=== PATIENT | male | born 1975 | race African-American/Black ===

== ENCOUNTER 2017-06-20 15:42 | Observation (INO) | payer SELFPAY ==
[~2017-06-20] VITALS: Ht 167.6 cm; Wt 73.6 kg
[~2017-06-20 15:42] MED LIST: CORTIS10A LEFT EAR; CYCL-36 PO; KETOROLAC TROMETHAMINE 30 MG/ML (IVP) VIAL IV PUSH ONE; NAPR500 PO; PHENYLEPH/NS 1000 MCG/10 ML SYR IV ONE; PROPOFOL 200 MG/20 ML AMP IV ONE; ROCURONIUM INJ 50 MG/5 ML SYRINGE IV PUSH ONE
[2017-06-20] MEDS ORDERED: IOHEXOL 350 MG/ML 10 ML VIAL (for RAD DIAG) IVCONTRAST ONE (15:43)
[2017-06-20 15:47] VITALS: BP 114/72; PULSE 81; RESP 16; TEMP 98.6; O2SAT 100; O2SAT 75
[2017-06-20] MEDS ORDERED: SODIUM CHLOR 0.9% 1000 ML INJ 1,000 ML IV ONE (17:00)
[2017-06-20] MEDS ORDERED: ONDANSETRON HCL 4 MG/2 ML VIAL IV PUSH ONE (17:00)
[2017-06-20] MEDS ORDERED: SODIUM CHLORIDE 0.9% FLUSH 10 ML FLUSH IV FLUSH PRN (17:00)
--- NOTE | 2017-06-20 17:03 | PD ---
HPI Chief Complaint: GI Complaint Time Seen by Provider: 16:53 Travel History International Travel<30 days: No Contact w/Intl Traveler<30days: No Traveled to known affect area: No History of Present Illness HPI 42-year-old male presents to the emergency department for evaluation nausea, vomiting, diarrhea, abdominal pain that started today. He states this all started around 2 PM. He states he has vomited 3 times, but the last time he just heaved. Patient also reports 2 episodes of diarrhea. No blood in the stool. He reports diffuse abdominal pain, worse in the right side of the abdomen. He denies any history of abdominal problems. No previous abdominal surgeries. He denies any fevers or chills. No chest pain or shortness of breath. Patient reports no chronic medical problems and takes no prescribed medications. He denies any alleviating or exacerbating factors. [facility] Past Medical History Medical History: Denies Significant Hx Diminished Hearing: No Immunizations Current: Yes Past Surgical History Surgical History: No Previous Surgery Social History Alcohol Use: Yes (OCC) Tobacco Use: Yes (1 PPD) Substance Use: No Allergies-Medications (Allergen,Severity, Reaction): Coded Allergies: No Known Allergies (Verified , 06/20/17) Reported Meds & Prescriptions Reported Meds & Active Scripts Active Review of Systems Except as stated in HPI: all other systems reviewed are Neg Physical Exam Narrative GENERAL: Well-nourished, well-developed male patient, ambulatory. Afebrile. SKIN: Focused skin assessment warm/dry. HEAD: Normocephalic. Atraumatic. EYES: No scleral icterus. No injection or drainage. NECK: Supple, trachea midline. No JVD or lymphadenopathy. CARDIOVASCULAR: Regular rate and rhythm without murmurs, gallops, or rubs. RESPIRATORY: Breath sounds equal bilaterally. No accessory muscle use. Lungs sounds are clear to auscultation. GASTROINTESTINAL: Abdomen soft and nondistended. Patient has mild-moderate diffuse tenderness to palpation. MUSCULOSKELETAL: No cyanosis, or edema. BACK: Nontender without obvious deformity. No CVA tenderness. Data Data Last Documented VS Vital Signs Date Time Temp Pulse Resp B/P (MAP) Pulse Ox O2 Delivery O2 Flow Rate FiO2 06/20/17 19:04 90 16 127/62 (83) 96 Room Air 06/20/17 15:47 98.6 Orders Orders Complete Blood Count With Diff (06/20/17 16:58) Comprehensive Metabolic Panel (06/20/17 16:58) Lipase (06/20/17 16:58) Prothrombin Time / Inr (Pt) (06/20/17 16:58) Act Partial Throm Time (Ptt) (06/20/17 16:58) Urinalysis - C+S If Indicated (06/20/17 16:58) Ct Abd/Pel W Iv Contrast(Rout) (06/20/17 16:58) Iv Access Insert/Monitor (06/20/17 16:58) Ecg Monitoring (06/20/17 16:58) Oximetry (06/20/17 16:58) Sodium Chloride 0.9% Flush (Ns Flush) (06/20/17 17:00) Sodium Chlor 0.9% 1000 Ml Inj (Ns 1000 M (06/20/17 17:00) Ondansetron Inj (Zofran Inj) (06/20/17 17:00) Iohexol 350 Inj (Omnipaque 350 Inj) (06/20/17 15:43) Admit Order (Ed Use Only) (06/20/17 ) Piperacil-Tazo 4.5 Gm Premix (Zosyn 4.5 (06/20/17 21:15) Labs Laboratory Tests Test 06/20/17 17:00 White Blood Count 11.5 TH/MM3 Red Blood Count 5.35 MIL/MM3 Hemoglobin 14.4 GM/DL Hematocrit 43.2 % Mean Corpuscular Volume 80.7 FL Mean Corpuscular Hemoglobin 26.8 PG Mean Corpuscular Hemoglobin Concent 33.2 % Red Cell Distribution Width 13.5 % Platelet Count 261 TH/MM3 Mean Platelet Volume 7.5 FL Neutrophils (%) (Auto) 89.3 % Lymphocytes (%) (Auto) 5.2 % Monocytes (%) (Auto) 4.7 % Eosinophils (%) (Auto) 0.6 % Basophils (%) (Auto) 0.2 % Neutrophils # (Auto) 10.2 TH/MM3 Lymphocytes # (Auto) 0.6 TH/MM3 Monocytes # (Auto) 0.5 TH/MM3 Eosinophils # (Auto) 0.1 TH/MM3 Basophils # (Auto) 0.0 TH/MM3 CBC Comment DIFF FINAL Differential Comment Prothrombin Time 12.0 SEC Prothromb Time International Ratio 1.1 RATIO Activated Partial Thromboplast Time 25.9 SEC Urine Color YELLOW Urine Turbidity CLEAR Urine pH 5.5 Urine Specific [place] 1.025 Urine Protein TRACE mg/dL Urine Glucose (UA) NEG mg/dL Urine Ketones TRACE mg/dL Urine Occult Blood NEG Urine Nitrite NEG Urine Bilirubin NEG Urine Urobilinogen LESS THAN 2.0 MG/DL Urine Leukocyte Esterase NEG Urine WBC 2 /hpf Urine Mucus FEW /lpf Microscopic Urinalysis Comment CULT NOT INDICATED Blood Urea Nitrogen 14 MG/DL Creatinine 1.26 MG/DL Random Glucose 85 MG/DL Total Protein 8.5 GM/DL Albumin 4.1 GM/DL Calcium Level 9.0 MG/DL Alkaline Phosphatase 111 U/L Aspartate Amino Transf (AST/SGOT) 15 U/L Alanine Aminotransferase (ALT/SGPT) 18 U/L Total Bilirubin 0.6 MG/DL Sodium Level 134 MEQ/L Potassium Level 3.9 MEQ/L Chloride Level 100 MEQ/L Carbon Dioxide Level 26.9 MEQ/L Anion Gap 7 MEQ/L Estimat Glomerular Filtration Rate 76 ML/MIN Lipase 141 U/L [facility] Medical Decision Making Medical Screen Exam Complete: Yes Emergency Medical Condition: Yes Medical Record Reviewed: Yes Interpretation(s) Last Impressions Abdomen/Pelvis CT 06/20/17 1658 Signed Impressions: Service Date/Time: , June 20, 2017 19:22 - CONCLUSION: Appendix visualized dilated at 1 cm without periappendiceal inflammatory change, free air, free fluid or abscess formation. This may represent early appendicitis Johnny Narvaez MD Differential Diagnosis Gastroenteritis versus diverticulitis versus cholecystitis versus pancreatitis versus appendicitis Narrative Course 42-year-old male presents to the emergency department for evaluation of abdominal pain, nausea, vomiting, diarrhea that started 2 PM today. Patient declines pain medication at this time. CBC, CMP, lipase, PTT, PT/INR ordered and pending. CT abdomen/pelvis with IV contrast is ordered and pending. Patient is given normal saline 1 L IV bolus, Zofran 4 mg IV. CBC shows leukocytosis 11.5. CMP shows no acute abnormality. Lipase is 141. Coags shows no acute abnormality. CT of the abdomen/pelvis shows appendix visualized dilated at 1 cm without periappendiceal inflammatory change, free air , free fluid or abscess formation. This may represent early appendicitis My attending physician, Dr. Chang, examined patient as well. He contacted Gen. surgeon and admitted patient. Danette Resendiz Jun 20, 2017 17:02
[2017-06-20 17:45] LABS: AUTOMATED NEUTROPHIL # 10.2 TH/MM3 (1.8-7.7); BASOPHIL % 0.2 % (0.0-2.0); EOSINOPHIL # 0.1 TH/MM3 (0-0.4); EOSINOPHIL % 0.6 % (0.0-4.0); HEMATOCRIT 43.2 % (39.0-51.0); HEMO FLAGS DIFF FINAL; LYMPH % 5.2 % (9.0-44.0); LYMPHOCYTE # 0.6 TH/MM3 (1.0-4.8); MEAN CELL VOLUME 80.7 FL (80.0-100.0); MEAN CORPUSCULAR HEMOGLOBIN 26.8 PG (27.0-34.0); MEAN CORPUSCULAR HGB CONC 33.2 % (32.0-36.0); MONO % 4.7 % (0.0-8.0); NEUT % 89.3 % (16.0-70.0); PLATELET COUNT 261 TH/MM3 (150-450); RED BLOOD COUNT 5.35 MIL/MM3 (4.50-5.90); RED CELL DISTRIBUTION WIDTH 13.5 % (11.6-17.2); WHITE BLOOD COUNT 11.5 TH/MM3 (4.0-11.0)
[2017-06-20 17:52] LABS: BLOOD, URINE NEG (NEG); COMMENT (UR) CULT NOT INDICATED; CULTURE IF INDICATED CULT NOT INDICATED; GLUCOSE,URINE NEG (NEG); KETONE, URINE TRACE mg/dL (NEG); MUCUS URINE FEW /lpf (OCC); NITRITE,URINE NEG (NEG); PH, URINE 5.5 (5.0-8.5); URINE COLOR YELLOW (YELLW/STRAW)
[2017-06-20 18:02] LABS: APTT (PATIENT) 25.9 SEC (24.3-30.1); INTERNATIONAL NORMALIZED RATIO 1.1 RATIO
[2017-06-20 18:08] LABS: ALT (GPT) 18 U/L (12-78); ANION GAP 7 MEQ/L (5-15); AST (GOT) 15 U/L (15-37); BICARBONATE 26.9 MEQ/L (21.0-32.0); BLOOD UREA NITROGEN 14 MG/DL (7-18); CHLORIDE 100 MEQ/L (98-107); GLOMERULAR FILTRATION RATE 76 ML/MIN (>89); POTASSIUM 3.9 MEQ/L (3.5-5.1); SODIUM (NA) 134 MEQ/L (136-145)
[2017-06-20 18:09] LABS: ALKALINE PHOSPHATASE 111 U/L (45-117); TOTAL BILIRUBIN ADULT 0.6 MG/DL (0.2-1.0)
[2017-06-20 19:04] VITALS: BP 127/62; PULSE 90; RESP 16; O2SAT 96
--- NOTE | 2017-06-20 20:06 | RADRPT ---
EXAM DATE/TIME: 06/20/2017 19:22 [place] COMPARISON: No previous studies available for comparison. INDICATIONS : Diffuse abdomen pain with vomiting. IV CONTRAST: 90 cc Omnipaque 350 (iohexol) IV ORAL CONTRAST: No oral contrast ingested. RADIATION DOSE: 6.64 CTDIvol (mGy) MEDICAL HISTORY : None SURGICAL HISTORY : None. ENCOUNTER: Initial ACUITY: 1 day PAIN SCALE: 4/10 LOCATION: Bilateral lower quadrant TECHNIQUE: Volumetric scanning of the abdomen and pelvis was performed. Using automated exposure control and ad justment of the mA and/or kV according to patient size, radiation dose was kept as low as reasonably achievable to obtain optimal diagnostic quality images. DICOM format image data is available electro nically for review and comparison. FINDINGS: LOWER LUNGS: The visualized lower lungs are clear. LIVER: Homogeneous density without lesion. There is no dilation of the biliary tree. No calcified gallston es. Gallbladder is contracted adjacent to the right lobe of the liver with no evidence of wall thicke konrad SPLEEN: Normal size without lesion. PANCREAS: Within normal limits. KIDNEYS: Normal in size and shape. There is no mass, stone or hydronephrosis. ADRENAL GLANDS: Within normal limits. VASCULAR: There is no aortic aneurysm. BOWEL/MESENTERY: Appendix is visualized and is dilated at 1 cm without inflammatory change or free fluid adjacent to t his or abscess formation no free air. There may be a mild ileus pattern of the bowel distribution. ABDOMINAL WALL: Within normal limits. RETROPERITONEUM: There is no lymphadenopathy. BLADDER: No wall thickening or mass. REPRODUCTIVE: Within normal limits. INGUINAL: There is no lymphadenopathy or hernia. MUSCULOSKELETAL: Within normal limits for patient age. CONCLUSION: Appendix visualized dilated at 1 cm without periappendiceal inflammatory change, free air, free fluid or abscess formation. This may represent early appendicitis Johnny Narvaez MD on June 20, 2017 at 20:00 Board Certified Radiologist. This report was verified electronically.
--- NOTE | 2017-06-20 21:00 | PD ---
Data Data Last Documented VS Vital Signs Date Time Temp Pulse Resp B/P (MAP) Pulse Ox O2 Delivery O2 Flow Rate FiO2 06/20/17 22:20 06/20/17 21:32 88 18 99 Room Air 06/20/17 15:47 98.6 Orders Orders Complete Blood Count With Diff (06/20/17 16:58) Comprehensive Metabolic Panel (06/20/17 16:58) Lipase (06/20/17 16:58) Prothrombin Time / Inr (Pt) (06/20/17 16:58) Act Partial Throm Time (Ptt) (06/20/17 16:58) Urinalysis - C+S If Indicated (06/20/17 16:58) Ct Abd/Pel W Iv Contrast(Rout) (06/20/17 16:58) Iv Access Insert/Monitor (06/20/17 16:58) Ecg Monitoring (06/20/17 16:58) Oximetry (06/20/17 16:58) Sodium Chloride 0.9% Flush (Ns Flush) (06/20/17 17:00) Sodium Chlor 0.9% 1000 Ml Inj (Ns 1000 M (06/20/17 17:00) Ondansetron Inj (Zofran Inj) (06/20/17 17:00) Iohexol 350 Inj (Omnipaque 350 Inj) (06/20/17 15:43) Admit Order (Ed Use Only) (06/20/17 ) Piperacil-Tazo 4.5 Gm Premix (Zosyn 4.5 (06/20/17 21:15) Bupivacaine Pf 0.25% Inj (Marcaine Pf 0. (06/20/17 22:10) Acetaminophen 1000 Mg/100 Ml (Ofirmev 10 (06/20/17 22:18) Sugammadex Inj (Bridion Inj) (06/20/17 22:19) Midazolam Inj (Versed Inj) (06/20/17 22:43) Metoclopramide Inj (Reglan Inj) (06/20/17 22:43) Dexamethasone Inj (Decadron Inj) (06/20/17 22:43) Ondansetron Inj (Zofran Inj) (06/20/17 22:43) Famotidine Inj (Pepcid Inj) (06/20/17 22:46) Place In Observation (06/20/17 23:40) Code Status (06/20/17 23:40) Vital Signs (Adult) ENID.Q4H (06/20/17 23:40) Activity Oob Ad Tiana (06/20/17 23:40) Discontinue Iv (06/20/17 23:40) Ice / Cold Pack PRN (06/20/17 23:40) Diet Regular Basic (06/21/17 Breakfast) Lactated Ringer's 1000 Ml Inj (Lr 1000 M (06/20/17 23:40) Sodium Chloride 0.9% Flush (Ns Flush) (06/20/17 23:45) Sodium Chloride 0.9% Flush (Ns Flush) (06/21/17 09:00) Ketorolac Inj (Toradol Inj) (06/20/17 23:45) Acetamin-Hydrocod 325-5 Mg ([place] 5-325 (06/20/17 23:45) Resp Incentive Spirometry (06/20/17 23:40) Acetamin-Hydrocod 325-5 Mg ([place] 5-325 (06/20/17 23:45) Morphine Inj (Morphine Inj) (06/20/17 23:45) Ondansetron Inj (Zofran Inj) (06/20/17 23:45) Post-Op Orders (For Pharmacy) (Post-Op O (06/20/17 23:45) Do Not Adm Any Anticoagulants (06/20/17 23:45) Naloxone Inj (Narcan Inj) (06/20/17 23:45) Diphenhydramine Inj (Benadryl Inj) (06/20/17 23:45) Labs Laboratory Tests Test 06/20/17 17:00 White Blood Count 11.5 TH/MM3 Red Blood Count 5.35 MIL/MM3 Hemoglobin 14.4 GM/DL Hematocrit 43.2 % Mean Corpuscular Volume 80.7 FL Mean Corpuscular Hemoglobin 26.8 PG Mean Corpuscular Hemoglobin Concent 33.2 % Red Cell Distribution Width 13.5 % Platelet Count 261 TH/MM3 Mean Platelet Volume 7.5 FL Neutrophils (%) (Auto) 89.3 % Lymphocytes (%) (Auto) 5.2 % Monocytes (%) (Auto) 4.7 % Eosinophils (%) (Auto) 0.6 % Basophils (%) (Auto) 0.2 % Neutrophils # (Auto) 10.2 TH/MM3 Lymphocytes # (Auto) 0.6 TH/MM3 Monocytes # (Auto) 0.5 TH/MM3 Eosinophils # (Auto) 0.1 TH/MM3 Basophils # (Auto) 0.0 TH/MM3 CBC Comment DIFF FINAL Differential Comment Prothrombin Time 12.0 SEC Prothromb Time International Ratio 1.1 RATIO Activated Partial Thromboplast Time 25.9 SEC Urine Color YELLOW Urine Turbidity CLEAR Urine pH 5.5 Urine Specific [place] 1.025 Urine Protein TRACE mg/dL Urine Glucose (UA) NEG mg/dL Urine Ketones TRACE mg/dL Urine Occult Blood NEG Urine Nitrite NEG Urine Bilirubin NEG Urine Urobilinogen LESS THAN 2.0 MG/DL Urine Leukocyte Esterase NEG Urine WBC 2 /hpf Urine Mucus FEW /lpf Microscopic Urinalysis Comment CULT NOT INDICATED Blood Urea Nitrogen 14 MG/DL Creatinine 1.26 MG/DL Random Glucose 85 MG/DL Total Protein 8.5 GM/DL Albumin 4.1 GM/DL Calcium Level 9.0 MG/DL Alkaline Phosphatase 111 U/L Aspartate Amino Transf (AST/SGOT) 15 U/L Alanine Aminotransferase (ALT/SGPT) 18 U/L Total Bilirubin 0.6 MG/DL Sodium Level 134 MEQ/L Potassium Level 3.9 MEQ/L Chloride Level 100 MEQ/L Carbon Dioxide Level 26.9 MEQ/L Anion Gap 7 MEQ/L Estimat Glomerular Filtration Rate 76 ML/MIN Lipase 141 U/L MDM Supervised Visit with AKASH: Yes Narrative Course I, Dr. Chang, have reviewed the advance practice practitioner's documentation and am in agreement, met with the patient face to face, made the diagnosis, and the medical decision making was done by me. *My assessment and Findings: Patient seen and examined by me, complains of nausea vomiting and intermittent diarrhea. Pain in his right flank, CT examination shows possible early appendicitis. The patient does have some tenderness in the right lower quadrant , minimal nonlocalizing peritonitis by percussion. He has voluntary guarding but no involuntary guarding. 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 The patient has become febrile in the emergency department to 100.5. I discussed the patient with Dr. Charlie Barbosa is on-call for general surgery. Zosyn was given, he started received a liter of normal saline here. Plan is to take the patient to operating room and he will assess there. Diagnosis Primary Impression: Appendicitis Qualified Codes: K37 - Unspecified appendicitis Admitting Information Admitting Physician Requests: Admit Condition: Stable Kei Chang MD Jun 20, 2017 21:00
[2017-06-20] MEDS ORDERED: PIPERACIL-TAZO 4.5 GM PREMIX 100 ML IV ONE (21:15)
[2017-06-20 21:32] VITALS: BP 139/80; PULSE 88; RESP 18; O2SAT 99
[2017-06-20] MEDS ORDERED: BUPIVACAINE HCL PF 0.25% 30 ML VIAL ONE (22:10)
[2017-06-20] MEDS ORDERED: ACETAMINOPHEN 1000 MG/100 ML 100 ML IV ONE (22:18)
[2017-06-20] MEDS ORDERED: SUGAMMADEX SODIUM 200 MG/2 ML VIAL IV PUSH ONE ×2 (22:19)
[2017-06-20] MEDS ORDERED: METOCLOPRAMIDE HCL 10 MG/2 ML VIAL ONE (22:43)
[2017-06-20] MEDS ORDERED: DEXAMETHASONE SOD PHOS 4 MG/ML VIAL ONE (22:43)
[2017-06-20] MEDS ORDERED: ONDANSETRON HCL 4 MG/2 ML VIAL ONE (22:43)
[2017-06-20] MEDS ORDERED: MIDAZOLAM HCL 2 MG/2 ML VIAL ONE (22:43)
[2017-06-20] MEDS ORDERED: FAMOTIDINE 20 MG/2 ML VIAL ONE (22:46)
--- NOTE | 2017-06-20 23:23 | MH ---
cc: NATHAN SHEEHAN DATE OF ADMISSION 06/20/2017 CHIEF COMPLAINT Appendicitis. HISTORY OF PRESENT ILLNESS Mr. Bernstein is a pleasant 42-year-old -[place] male who presented to the emergency department earlier today with complaints of a several hour history of abdominal pain associated with nausea, vomiting and diarrhea. The patient states he was at home and developed nausea, vomiting, diarrhea and abdominal pain. He called the ambulance. The ambulance brought him to [facility] where he was seen and evaluated by emergency department staff. The patient complained of mid abdominal and right lower quadrant abdominal pain. He states that the pain was made worse by moving around. He has not any fever or chills. He denied any previous abdominal pain. He denied any urinary symptoms. The patient was seen and evaluated in the emergency department. He was found to have a slight elevation of white count at 11.5 with a shift of 89% neutrophils. A CT scan of the abdomen and pelvis showed a dilated appendix at 1 cm without significant inflammatory stranding concerning for possible early appendicitis. Surgical consultation was requested. PAST MEDICAL HISTORY None PAST SURGICAL HISTORY None MEDICATIONS None. ALLERGIES He has no known drug allergies. SOCIAL HISTORY He admits to social alcohol use and cigarette use. He lives here locally with some friends. FAMILY HISTORY Noncontributory. REVIEW OF SYSTEMS Documented in HPI. PHYSICAL EXAMINATION VITAL SIGNS: Temperature is 98, pulse is 88, blood pressure is 114/70, respiratory rate 20. please note that the ER reports that the patient did have a fever to 101 while he was in the department, but IT is not documented IN the EMR. GENERAL: This is a pleasant muscular -[place]oven[place] male sitting in his bed. No apparent stress. HEENT: Pupils equal, round, reactive to light. Sclerae are white. Oropharynx is clear and moist. NECK: Supple. No masses. LUNGS: Clear to auscultation bilaterally. HEART: S1-S2 no murmur. ABDOMEN: Soft, tender in the right lower quadrant with some voluntary guarding. No obvious rebound. EXTREMITIES: Free range of motion x4. NEUROLOGIC: Alert and oriented x3. LABORATORY DATA Electrolytes all within normal limits except for low sodium 134. Lipase is 141. White count 11.5, hemoglobin 14, platelet count is 261. He has 89% neutrophils and 5.2% lymphocytes. His urinalysis is negative. IMAGING STUDIES CT the abdomen pelvis demonstrates a 1 cm appendix without significant inflammatory change. No free fluid. No free air. IMPRESSION Probable early appendicitis. PLAN Risks and benefits of observation versus laparoscopic appendectomy was discussed with the patient. The patient is agreeable to proceed to the operating room. Operating room was notified and we will take the patient immediately. Nathan MD KEZIA Sheehan/ /10:52 PM /11:05 PM
[2017-06-20] MEDS ORDERED: MORPHINE SULFATE 8 MG/ML INJ IV PUSH PRN (23:45)
[2017-06-20] MEDS ORDERED: SODIUM CHLORIDE 0.9% FLUSH 5 ML FLUSH IVF PRN (23:45)
[2017-06-20] MEDS ORDERED: ACETAMINOPHEN/HYDROcodone 325 MG/5 MG TAB PO PRN ×2 (23:45)
[2017-06-20] MEDS ORDERED: KETOROLAC TROMETHAMINE 30 MG/ML (IVP) VIAL IVP PRN (23:45)
[2017-06-20] MEDS ORDERED: Post-op Orders (for Pharmacy) MISC XX ONE (23:45)
[2017-06-20] MEDS ORDERED: diphenhydrAMINE HCL 50 MG/ML VIAL IV PUSH PRN (23:45)
[2017-06-20] MEDS ORDERED: ONDANSETRON HCL 4 MG/2 ML VIAL IV PUSH PRN (23:45)
[2017-06-20] MEDS ORDERED: NALOXONE HCL 0.4 MG/ML AMP IV PUSH PRN (23:45)
[2017-06-20] MEDS ORDERED: DO NOT ADM ANY ANTICOAGULANT DRUGS PRN (23:57)
[2017-06-20] MEDS: LACTATED RINGER'S 1000 ML INJ 1,000 ML IV SCH (23:59)
[2017-06-21 01:11] VITALS: BP 118/64; PULSE 82; RESP 18; TEMP 99.7; O2SAT 94
[2017-06-21 04:00] VITALS: BP 115/73; PULSE 95; RESP 20; TEMP 99; O2SAT 96
[2017-06-21] MEDS ORDERED: PCA - TOTAL MG MORPHINE DELIVERED PER SHIFT SCH (06:00)
--- NOTE | 2017-06-21 06:51 | MP ---
cc: ANTHAN SHEEHAN M.D. DATE OF SURGERY 06/20/2017 PREOPERATIVE DIAGNOSIS Acute appendicitis POSTOPERATIVE DIAGNOSIS 1. Acute appendicitis 2. Retrocecal appendix PROCEDURE PERFORMED Laparoscopic appendectomy SURGEON Nathan Sheehan MD ANESTHESIA General endotracheal COMPLICATIONS None INDICATION FOR THE PROCEDURE Mr. Bernstein is a pleasant 42-year-old gentleman who presented to the emergency department with a 6-hour history of abdominal pain with associated nausea, vomiting, and diarrhea. He was seen and evaluated in the emergency department. He was sent for blood work and a CT scan that was concerning for possible early appendicitis. Specifically, he had a dilated appendix and an elevated white count. Surgical consultation was requested. The patient had tenderness in the right lower quadrant. He was offered immediate appendectomy. The risks and benefits of laparoscopic, possible open appendectomy discussed with him and he is agreeable. DETAILS The patient identified, brought to the operating room, placed supine on the operating room table. After adequate general endotracheal anesthesia was achieved, the abdomen was prepped and draped in standard surgical fashion. The supraumbilical space anesthetized with quarter percent Marcaine. A supraumbilical incision was made. Dissection was carried down through the subcutaneous tissue to the midline fascia. The midline fascia was then incised sharply. A finger was then placed in the peritoneal cavity without difficulty. A blunt balloon trocar was inserted and the abdomen was insufflated to 15 mm using CO2 gas. Next, two 5 mm trocars were placed in the lower midline under direct vision after anesthetizing the skin and subcutaneous tissue with quarter percent Marcaine. Attention was directed to the right lower quadrant where the appendix was identified. The appendix was seen to be retrocecal going up behind the cecum and then curling back. The appendix was carefully grasped and dissected off the lateral abdominal sidewall using the harmonic scalpel. Once the appendix was freed up, the mesentery was taken down with the harmonic scalpel. Once the base of the cecum was identified, two 2-0 PDS Endoloops were placed on the proximal appendix at the cecal base. The distal appendix was then grasped and divided with the harmonic scalpel. The appendix was placed into an Endopouch bag, brought through the supraumbilical port and the appendix was inspected and sent to pathology for analysis. Next, the abdominal cavity rinsed out with one liter of warm saline solution. The stump was copiously irrigated. There was no evidence of a leak. The Endoloops were tested and found to be intact without evidence of a leak. There was no bleeding noted. The irrigant was removed from the abdominal cavity. The cecum was returned to its anatomic position in the right lower quadrant and then covered with omentum. All trocars were then removed under direct vision. The midline fascia was repaired with 0 Vicryl in a [id number] fashion. The skin was closed with 4-0 Vicryl. The patient tolerated the procedure well, was awakened, extubated and brought to recovery in stable condition. Nathan MD KEZIA Sheehan/PROSPER /11:43 PM /6:39 AM
--- NOTE | 2017-06-21 07:17 | HHI.PR ---
Subjective Subjective Notes sore, slept well, no N/V, no fevers. Objective Vitals/I&O Vital Signs Date Time Temp Pulse Resp B/P (MAP) Pulse Ox O2 Delivery O2 Flow Rate FiO2 06/21/17 04:00 99.0 95 20 115/73 (87) 96 06/21/17 00:30 Room Air 06/21/17 00:00 2 Labs Laboratory Tests Test 06/20/17 17:00 White Blood Count 11.5 Red Blood Count 5.35 Hemoglobin 14.4 Hematocrit 43.2 Mean Corpuscular Volume 80.7 Mean Corpuscular Hemoglobin 26.8 Mean Corpuscular Hemoglobin Concent 33.2 Red Cell Distribution Width 13.5 Platelet Count 261 Mean Platelet Volume 7.5 Neutrophils (%) (Auto) 89.3 Lymphocytes (%) (Auto) 5.2 Monocytes (%) (Auto) 4.7 Eosinophils (%) (Auto) 0.6 Basophils (%) (Auto) 0.2 Neutrophils # (Auto) 10.2 Lymphocytes # (Auto) 0.6 Monocytes # (Auto) 0.5 Eosinophils # (Auto) 0.1 Basophils # (Auto) 0.0 CBC Comment DIFF FINAL Differential Comment Prothrombin Time 12.0 Prothromb Time International Ratio 1.1 Activated Partial Thromboplast Time 25.9 Urine Color YELLOW Urine Turbidity CLEAR Urine pH 5.5 Urine Specific [place] 1.025 Urine Protein TRACE Urine Glucose (UA) NEG Urine Ketones TRACE Urine Occult Blood NEG Urine Nitrite NEG Urine Bilirubin NEG Urine Urobilinogen LESS THAN 2.0 Urine Leukocyte Esterase NEG Urine WBC 2 Urine Mucus FEW Microscopic Urinalysis Comment CULT NOT INDICATED Blood Urea Nitrogen 14 Creatinine 1.26 Random Glucose 85 Total Protein 8.5 Albumin 4.1 Calcium Level 9.0 Alkaline Phosphatase 111 Aspartate Amino Transf (AST/SGOT) 15 Alanine Aminotransferase (ALT/SGPT) 18 Total Bilirubin 0.6 Sodium Level 134 Potassium Level 3.9 Chloride Level 100 Carbon Dioxide Level 26.9 Anion Gap 7 Estimat Glomerular Filtration Rate 76 Lipase 141 Abdomen: Non-distended, Non-tender, Post-op tenderness, BS normal Wound Wound : Wound Location: Abdomen Appearance: Clean & Dry A/P Assessment and Plan POD1 lap appy dc home later today rx on chart FU saturday [phone] Charlie Barbosa MD Jun 21, 2017 07:17
[2017-06-21 08:00] VITALS: BP 116/66; PULSE 95; RESP 16; TEMP 100.4; O2SAT 97
[2017-06-21] MEDS ORDERED: SODIUM CHLORIDE 0.9% FLUSH 5 ML FLUSH IVF SCH (09:00)
[2017-06-21 09:20] VITALS: O2SAT 96
[2017-06-21] MEDS: LACTATED RINGER'S 1000 ML INJ 1,000 ML IV SCH (09:40)
[2017-06-21] MEDS ORDERED: NORC5TAB PO (11:38)
[2017-06-22] MEDS ORDERED: INFLUENZA VIRUS VACCINE (QUADRIVALENT) 0.5 ML SYR IM ONE (10:00)
== END 2017-06-21 17:15 | disposition home or self-care (01) ==
LOC: NEPE 15:42 → UNDOADMIN 21:12 → NEDA 21:12 → INTOOBSV 23:42 → NEDA 23:42 → N07B 06-21 00:50
PROVIDERS: ADMIT Surgery Trauma Surgery; ATTEND Surgery Trauma Surgery
DX: K35.80 Unspecified acute appendicitis (principal); R19.7 Diarrhea, unspecified; R10.31 Right lower quadrant pain; F17.200 Nicotine dependence, unspecified, uncomplicated; Z01.818 Encounter for other preprocedural examination
CPT/HCPCS: 00840; 44970; 74177; 80053; 81001; 83690; 85025; 85610; 85730; 88304; 94150; 96361; 96374; 99285; G0378; J0131; J1100; J1885; J2250; J2370; J2405; J2543; J2765; J3010; J7030; J7120; Q9967

== ENCOUNTER 2017-11-12 23:35 | Emergency (ER) | payer SELFPAY ==
[~2017-11-12] VITALS: Ht 167.6 cm; Wt 88.5 kg
[~2017-11-12 23:35] MED LIST changes: -CORTIS10A LEFT EAR; -CYCL-36 PO; -KETOROLAC TROMETHAMINE 30 MG/ML (IVP) VIAL IV PUSH ONE; -NAPR500 PO; +NORC5TAB PO; -PHENYLEPH/NS 1000 MCG/10 ML SYR IV ONE; -PROPOFOL 200 MG/20 ML AMP IV ONE; -ROCURONIUM INJ 50 MG/5 ML SYRINGE IV PUSH ONE
[2017-11-12 23:45] VITALS: BP 140/91; PULSE 96; RESP 16; TEMP 98.3; O2SAT 100
[2017-11-13] MEDS ORDERED: DICL75TA PO (03:43)
[2017-11-13] MEDS ORDERED: AMOX500T PO (03:43)
[2017-11-13] MEDS ORDERED: AMOXICILLIN (TRIHYDRATE) 500 MG CAP PO ONE (03:45)
[2017-11-13] MEDS ORDERED: IBUPROFEN 600 MG TAB PO ONE (03:45)
--- NOTE | 2017-11-13 03:45 | PD ---
HPI Chief Complaint: Pain: Acute or Chronic Time Seen by Provider: 03:39 Travel History International Travel<30 days: No Contact w/Intl Traveler<30days: No Traveled to known affect area: No History of Present Illness HPI 42-year-old black male presents emergency department with left lower mandible pain. Patient states that this is been present for the last few days. Symptoms are mild. No alleviating factors. Exacerbated by palpation. PFSH Past Medical History Blood Disorders: No Cancer: No Cardiovascular Problems: No Diminished Hearing: No Endocrine: No Gastrointestinal Disorders: Yes (Appendicitis) Genitourinary: No Immune Disorder: No Musculoskeletal: No Neurologic: No Psychiatric: No Reproductive: No Respiratory: No Immunizations Current: Yes Past Surgical History Other Surgery: Yes (Lap Appi 06/21/2017) Social History Alcohol Use: Yes (OCC) Tobacco Use: Yes (1 PPD) Substance Use: No Allergies-Medications (Allergen,Severity, Reaction): Coded Allergies: No Known Allergies (Verified Adverse Reaction, Unknown, 11/13/17) Reported Meds & Prescriptions Reported Meds & Active Scripts Active Diclofenac Sodium DR (Diclofenac Sodium) 75 Mg Tabdr 75 Mg PO BID Amoxicillin 500 Mg Tab 500 Mg PO TID 10 Days Reported [place] (Hydrocodone-Acetaminophen) 5-325 mg Tab 1-2 Tab PO Q4HR PRN Review of Systems General / Constitutional: No: Fever Eyes: No: Visual changes HENT: Positive: Dental Difficulties, No: Headaches, Gingival Bleeding, Earache Cardiovascular: No: Chest Pain or Discomfort Respiratory: No: Shortness of Breath Gastrointestinal: No: Abdominal Pain Genitourinary: No: Dysuria Musculoskeletal: No: Pain Skin: No Rash Neurologic: No: Weakness Psychiatric: No: Depression Endocrine: No: Polydipsia Hematologic/Lymphatic: No: Easy Bruising Physical Exam Narrative GENERAL: Well-developed, well-nourished in no acute distress. Nontoxic appearing. HEAD: Normocephalic, atraumatic. EYES: Pupils equal round and reactive. Extraocular motions intact. No scleral icterus. No injection or drainage. ENT: TMs clear without erythema. The external auditory canals clear. Nose: clear . Posterior pharynx is pink and moist. No tonsillar edema or exudate. Uvula midline. Airway patent. Patient has a large dental carry in his left lower first molar NECK: Trachea midline.Supple, nontender, moves head freely. No central bony tenderness or spasm. CARDIOVASCULAR: Regular rate and rhythm without murmurs, gallops, or rubs. RESPIRATORY: Clear to auscultation. Breath sounds equal bilaterally. No wheezes , rales, or rhonchi. GASTROINTESTINAL: Abdomen soft, non-tender, nondistended. No hepato-splenomegaly , or palpable masses. No guarding. EXTREMITIES: No clubbing, cyanosis, or edema. No joint tenderness, effusion, or edema noted. BACK: Nontender without deformity or crepitance. No flank tenderness. Data Data Last Documented VS Vital Signs Date Time Temp Pulse Resp B/P (MAP) Pulse Ox O2 Delivery O2 Flow Rate FiO2 11/12/17 23:45 98.3 96 16 140/91 (107) 100 Room Air Orders Orders Ed Discharge Order (11/13/17 03:41) Amoxicillin (Trimox) (11/13/17 03:45) Ibuprofen (Motrin) (11/13/17 03:45) MDM Medical Decision Making Medical Screen Exam Complete: Yes Emergency Medical Condition: Yes Medical Record Reviewed: Yes Differential Diagnosis MDM: Moderate Differential diagnoses: Dental abscess, dental caries, osteitis, cellulitis Narrative Course Patient given amoxicillin 500 mg and Motrin 800 mg p.o. This is dental caries, dentalgia Diagnosis Primary Impression: Dental caries Additional Impression: Dentalgia Patient Instructions: General Instructions Additional Instructions: Rest. Saltwater gargles. Deaver oil on cotton balls. Amoxicillin and diclofenac follow-up with a dentist as soon as possible. And return to the ER if any problems. Med/Other Pt SpecificInfo: Prescription(s) given Scripts Diclofenac Sodium DR (Diclofenac Sodium DR) 75 Mg Tabdr 75 MG PO BID, #14 TAB 0 Refills Prov: Shadi De MD 11/13/17 Amoxicillin (Amoxicillin) 500 Mg Tab 500 MG PO TID for Infection for 10 Days, TAB 0 Refills Prov: Shadi De MD 11/13/17 Disposition: 01 DISCHARGE HOME Condition: Kash Jiménez Nov 13, 2017 03:45
== END 2017-11-13 05:48 | disposition home or self-care (01) ==
LOC: NEPD 23:35
DX: K02.9 Dental caries, unspecified (principal); F17.200 Nicotine dependence, unspecified, uncomplicated
CPT/HCPCS: 99283

== ENCOUNTER 2018-01-06 18:34 | Emergency (ER) | payer SELFPAY ==
[~2018-01-06] VITALS: Ht 162.6 cm; Wt 72.0 kg
[~2018-01-06 18:34] MED LIST changes: +AMOX500T PO; +DICL75TA PO
[2018-01-06] MEDS ORDERED: SODIUM CHLOR 0.9% 1000 ML INJ 1,000 ML IV ONE (18:47)
--- NOTE | 2018-01-06 18:49 | PD ---
HPI Chief Complaint: Syncope Time Seen by Provider: 18:45 Travel History International Travel<30 days: No Contact w/Intl Traveler<30days: No Traveled to known affect area: No History of Present Illness HPI This is a 42-year-old male with no significant past medical history presents for evaluation via EMS after a syncopal event. The patient reports that he did not eat or drink anything this morning. He went to work at 4:30 PM. 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 He lost consciousness. This was witnessed according to paramedics. They were told that he lost consciousness for several seconds. There was no seizure activity. He is complaining of left forearm pain as well as hunger currently. Pain is mild and aching and worse with movement. He denies any headache, blurred vision, chest pain, shortness of breath, nausea, vomiting, diarrhea, constipation, recent illness. He has no other complaints at this time. PFSH Past Medical History Blood Disorders: No Cancer: No Cardiovascular Problems: No Diminished Hearing: No Endocrine: No Gastrointestinal Disorders: Yes (Appendicitis) Genitourinary: No Immune Disorder: No Musculoskeletal: No Neurologic: No Psychiatric: No Reproductive: No Respiratory: No Immunizations Current: Yes Past Surgical History Other Surgery: Yes (Lap Appi 06/21/2017) Social History Alcohol Use: Yes (OCC) Tobacco Use: Yes (1 PPD) Substance Use: No Allergies-Medications (Allergen,Severity, Reaction): Coded Allergies: No Known Allergies (Verified Adverse Reaction, Unknown, 11/13/17) Reported Meds & Prescriptions Reported Meds & Active Scripts Active Diclofenac Sodium DR (Diclofenac Sodium) 75 Mg Tabdr 75 Mg PO BID Amoxicillin 500 Mg Tab 500 Mg PO TID 10 Days Reported [place] (Hydrocodone-Acetaminophen) 5-325 mg Tab 1-2 Tab PO Q4HR PRN Review of Systems Except as stated in HPI: all other systems reviewed are Neg Physical Exam Narrative GENERAL: Well-developed well-nourished male in no acute distress sitting upright in hospital bed SKIN: Warm and dry. There is an abrasion to the mid left forearm. HEAD: Atraumatic. Normocephalic. EYES: Pupils the right pupil is 2 mm round and reactive to light. Left pupil is 4 mm, somewhat irregular and reactive to light. Extraocular muscles are intact. ENT: No nasal bleeding or discharge. Mucous membranes pink and moist. NECK: Trachea midline. No JVD. CARDIOVASCULAR: Regular rate and rhythm. No murmur appreciated. RESPIRATORY: No accessory muscle use. Clear to auscultation. Breath sounds equal bilaterally. GASTROINTESTINAL: Abdomen soft, non-tender, nondistended. Hepatic and splenic margins not palpable. MUSCULOSKELETAL: No obvious deformities. No clubbing. No cyanosis. No edema. NEUROLOGICAL: Awake and alert. No obvious cranial nerve deficits. Motor grossly within normal limits. Normal speech. Data Data Last Documented VS Vital Signs Date Time Temp Pulse Resp B/P (MAP) Pulse Ox O2 Delivery O2 Flow Rate FiO2 01/06/18 19:50 99 01/06/18 19:39 98.3 66 19 Room Air Orders Orders Electrocardiogram (01/06/18 18:47) Basic Metabolic Panel (Bmp) (01/06/18 18:47) Complete Blood Count With Diff (01/06/18 18:47) Magnesium (Mg) (01/06/18 18:47) Troponin I (01/06/18 18:47) Ct Brain W/O Iv Contrast(Rout) (01/06/18 18:47) Ecg Monitoring (01/06/18 18:47) Iv Access Insert/Monitor (01/06/18 18:47) Oximetry (01/06/18 18:47) Sodium Chloride 0.9% Flush (Ns Flush) (01/06/18 19:00) Sodium Chlor 0.9% 1000 Ml Inj (Ns 1000 M (01/06/18 18:47) Blood Glucose (01/06/18 18:47) Forearm (2vws) (01/06/18 ) Tetanus/Diphtheria Tox Adult (Tetanus/Di (01/06/18 19:00) Orthostatic Vital Signs (01/06/18 19:51) Ed Discharge Order (01/06/18 20:04) Labs Laboratory Tests Test 01/06/18 19:21 White Blood Count 6.4 TH/MM3 Red Blood Count 5.19 MIL/MM3 Hemoglobin 13.9 GM/DL Hematocrit 41.7 % Mean Corpuscular Volume 80.4 FL Mean Corpuscular Hemoglobin 26.8 PG Mean Corpuscular Hemoglobin Concent 33.4 % Red Cell Distribution Width 14.0 % Platelet Count 290 TH/MM3 Mean Platelet Volume 7.3 FL Neutrophils (%) (Auto) 73.1 % Lymphocytes (%) (Auto) 19.2 % Monocytes (%) (Auto) 6.7 % Eosinophils (%) (Auto) 0.3 % Basophils (%) (Auto) 0.7 % Neutrophils # (Auto) 4.7 TH/MM3 Lymphocytes # (Auto) 1.2 TH/MM3 Monocytes # (Auto) 0.4 TH/MM3 Eosinophils # (Auto) 0.0 TH/MM3 Basophils # (Auto) 0.0 TH/MM3 CBC Comment DIFF FINAL Differential Comment Blood Urea Nitrogen 13 MG/DL Creatinine 1.17 MG/DL Random Glucose 93 MG/DL Calcium Level 8.7 MG/DL Magnesium Level 1.9 MG/DL Sodium Level 138 MEQ/L Potassium Level 4.8 MEQ/L Chloride Level 105 MEQ/L Carbon Dioxide Level 28.9 MEQ/L Anion Gap 4 MEQ/L Estimat Glomerular Filtration Rate 83 ML/MIN Troponin I LESS THAN 0.02 NG/ML MDM Medical Decision Making Medical Screen Exam Complete: Yes Emergency Medical Condition: Yes Medical Record Reviewed: Yes Differential Diagnosis Hypoglycemia, orthostatic hypotension, dehydration, electrolyte abnormality, vertigo, closed head injury, intracranial hemorrhage, arrhythmia Narrative Course Patient was placed on ECG monitoring pulse oximetry. A 12-lead EKG was obtained revealing evidence of LVH. Lab work, CT the brain, left forearm x- rays been ordered. IV fluids initiated. CBC is unremarkable. BMP is unremarkable. Troponin is negative. CT the brain is normal. Left forearm x-ray reveals no acute abnormalities. The patient was able to tolerate food and fluid intake and he was quite hungry. He feels much improved after the administration of oral nourishment. He is able to stand and ambulate without symptomatology. Is stable for discharge. Diagnosis Primary Impression: Syncope Departure Forms: Tests/Procedures, Work Release Enter return to work date: January 07, 2018 Additional Instructions: Stay well hydrated and well-nourished. Follow-up close with primary care physician in the next week. Return for any emergent medical conditions. Med/Other Pt SpecificInfo: No Change to Meds Disposition: 01 DISCHARGE HOME Condition: Stable Elliott Nava January 06, 2018 18:49
[2018-01-06] MEDS ORDERED: SODIUM CHLORIDE 0.9% FLUSH 10 ML FLUSH IVF PRN (19:00)
[2018-01-06] MEDS ORDERED: TETANUS/DIPHTHERIA TOXOID ADULT 0.5 ML VIAL IM ONE (19:00)
--- NOTE | 2018-01-06 19:11 | RADRPT ---
EXAM DATE/TIME: 01/06/2018 19:02 [facility] COMPARISON: No previous studies available for comparison. INDICATIONS : Pt fell and landed on left arm. MEDICAL HISTORY : None. SURGICAL HISTORY : None. ENCOUNTER: Initial ACUITY: 1 day PAIN SCORE: 7/10 LOCATION: Left upper extremity posterior center forearm. FINDINGS: Two view examination of the left forearm demonstrates no evidence of fracture or dislocation. Bony m ineralization is normal. The soft tissue structures are intact. CONCLUSION: 1. No acute bony abnormalities. Soft tissue swelling in the forearm. Kash Martinez MD on January 06, 2018 at 19:07 Board Certified Radiologist. This report was verified electronically.
--- NOTE | 2018-01-06 19:31 | RADRPT ---
EXAM DATE/TIME: 01/06/2018 19:10 [facility] COMPARISON: No previous studies available for comparison. INDICATIONS : Syncopal episode. RADIATION DOSE: 37.34 CTDIvol (mGy) MEDICAL HISTORY : None SURGICAL HISTORY : None. ENCOUNTER: Initial ACUITY: 1 day PAIN SCALE: 0/10 LOCATION: cranial TECHNIQUE: Multiple contiguous axial images were obtained of the head. Using automated exposure control and adj ustment of the mA and/or kV according to patient size, radiation dose was kept as low as reasonably a chievable to obtain optimal diagnostic quality images. DICOM format image data is available electro nically for review and comparison. FINDINGS: CEREBRUM: The ventricles are normal for age. No evidence of midline shift, mass lesion, hemorrhage or acute in farction. No extra-axial fluid collections are seen. POSTERIOR FOSSA: The cerebellum and brainstem are intact. The 4th ventricle is midline. The cerebellopontine angle i s unremarkable. EXTRACRANIAL: The visualized portion of the orbits is intact. SKULL: The calvaria is intact. No evidence of skull fracture. CONCLUSION: 1. No acute intracranial abnormalities. Kash Martinez MD on January 06, 2018 at 19:27 Board Certified Radiologist. This report was verified electronically.
[2018-01-06 19:39] VITALS: BP 117/74; PULSE 66; RESP 19; TEMP 98.3; O2SAT 100
[2018-01-06 19:40] LABS: AUTOMATED NEUTROPHIL # 4.7 TH/MM3 (1.8-7.7); BASOPHIL % 0.7 % (0.0-2.0); EOSINOPHIL % 0.3 % (0.0-4.0); HEMATOCRIT 41.7 % (39.0-51.0); HEMOGLOBIN 13.9 GM/DL (13.0-17.0); LYMPH % 19.2 % (9.0-44.0); LYMPHOCYTE # 1.2 TH/MM3 (1.0-4.8); MEAN CELL VOLUME 80.4 FL (80.0-100.0); MEAN CORPUSCULAR HEMOGLOBIN 26.8 PG (27.0-34.0); MEAN CORPUSCULAR HGB CONC 33.4 % (32.0-36.0); MEAN PLATELET VOLUME 7.3 FL (7.0-11.0); MONO % 6.7 % (0.0-8.0); MONOCYTE # 0.4 TH/MM3 (0-0.9); NEUT % 73.1 % (16.0-70.0); PLATELET COUNT 290 TH/MM3 (150-450); RED BLOOD COUNT 5.19 MIL/MM3 (4.50-5.90); WHITE BLOOD COUNT 6.4 TH/MM3 (4.0-11.0)
[2018-01-06 19:50] VITALS: O2SAT 99
[2018-01-06 20:01] LABS: BICARBONATE 28.9 MEQ/L (21.0-32.0); BLOOD UREA NITROGEN 13 MG/DL (7-18); CALCIUM 8.7 MG/DL (8.5-10.1); CHLORIDE 105 MEQ/L (98-107); CREATININE 1.17 MG/DL (0.60-1.30); GLOMERULAR FILTRATION RATE 83 ML/MIN (>89); GLUCOSE,RANDOM 93 MG/DL (74-106); MAGNESIUM 1.9 MG/DL (1.5-2.5); SODIUM (NA) 138 MEQ/L (136-145); TROPONIN I LESS THAN 0.02 NG/ML (0.02-0.05)
[2018-01-06 20:09] VITALS: BP_SYST 116; BP_SYST 118; BP_SYST 122; BP_DIAS 75; BP_DIAS 76; BP_DIAS 81; RESP 16; RESP 18
--- NOTE | 2018-01-07 11:27 | EKG ---
Date Performed: 01/06/2018 Time Performed: 18:50:31 PTAGE: 42 years EKG: Sinus rhythm early repolarization VOLTAGE CRITERIA FOR LVH ABNORMAL ECG NO PREVIOUS TRACING DOCTOR: Shaun Hopkins Interpretating Date/Time 01/07/2018 11:25:45
== END 2018-01-06 21:19 | disposition home or self-care (01) ==
LOC: NEPE 18:34
DX: R55 Syncope and collapse (principal); R94.31 Abnormal electrocardiogram [ECG] [EKG]; M79.632 Pain in left forearm; F17.210 Nicotine dependence, cigarettes, uncomplicated; Z23 Encounter for immunization
CPT/HCPCS: 70450; 73090; 80048; 83735; 84484; 85025; 90471; 90714; 93005; 96360; 96361; 99285; J7030